=== PATIENT | male | born 1980 | race Caucasian/White ===

== ENCOUNTER 2016-10-29 04:25 | Emergency (ER) | payer BC, OTHER ==
[2016-10-29] MEDS ORDERED: SODIUM CHLORIDE 0.9% 500 ML IV STA (05:17)
[2016-10-29] MEDS ORDERED: METOCLOPRAMIDE 5 MG/ML 2 ML VIAL IVP STA (05:17)
[2016-10-29] MEDS ORDERED: KETOROLAC 30 MG/ML 1 ML VIAL IVP STA (05:17)
--- NOTE | 2016-10-29 05:20 | ED ---
General Adult HPI - General Chief complaint: Back Pain/Injury Stated complaint: low back pain, abd pain, vomiting Time Seen by Provider: 10/29/16 05:13 Source: patient, family, RN notes reviewed Mode of arrival: ambulatory Limitations: no limitations - History of Present Illness Initial comments: Patient is a pleasant 36-year-old male presenting to the emergency department complaining left back and now abdominal discomfort. Onset was around midnight. Discomfort was fairly sudden. Discomfort is now radiating more towards the lower abdomen. No hematuria or dysuria. No constipation. No history of similar symptoms previously. Patient is nauseated and has vomited a few times. No fever. - Related Data Home Medications Medication Instructions Recorded Confirmed Topiramate [Trokendi Xr] 100 mg PO BID 10/29/16 10/29/16 Previous Rx's Medication Instructions Recorded Hydrocodone/Acetaminophen [[place] 2 each PO Q6HR PRN #20 tab 10/29/16 5-325] Metoclopramide HCl [Reglan] 10 mg PO Q6HR PRN #15 tablet 10/29/16 Allergies Allergy/AdvReac Type Severity Reaction Status Date / Time naproxen AdvReac Unknown Verified 10/29/16 04:33 Review of Systems ROS Statement: Those systems with pertinent positive or pertinent negative responses have been documented in the HPI. ROS Other: All systems not noted in ROS Statement are negative. Constitutional: Denies: fever, chills Eyes: Denies: eye pain ENT: Denies: ear pain Respiratory: Denies: cough Cardiovascular: Denies: chest pain Endocrine: Denies: fatigue Gastrointestinal: Reports: abdominal pain, nausea, vomiting. Denies: constipation Genitourinary: Denies: dysuria, hematuria Musculoskeletal: Reports: back pain Skin: Denies: rash Neurological: Denies: weakness Past Medical History Additional Past Medical History / Comment(s): migraines History of Any Multi-Drug Resistant Organisms: None Reported Past Surgical History: Orthopedic Surgery Past Psychological History: No Psychological Hx Reported Smoking Status: Never smoker Past Alcohol Use History: None Reported Past Drug Use History: None Reported General Exam Limitations: no limitations General appearance: alert, in no apparent distress Head exam: Present: atraumatic Eye exam: Present: normal appearance, PERRL ENT exam: Present: normal oropharynx Neck exam: Present: normal inspection Respiratory exam: Present: normal lung sounds bilaterally Cardiovascular Exam: Present: regular rate, normal rhythm Expanded Peripheral pulses: 2+: Dorsalis Pedis (R), Dorsalis Pedis (L) GI/Abdominal exam: Present: soft, tenderness (Mild tenderness left lower abdomen ). Absent: distended Extremities exam: Present: normal inspection Back exam: Present: tenderness (Mild tenderness left lower back). Absent: CVA tenderness (R), CVA tenderness (L) Neurological exam: Present: alert Psychiatric exam: Absent: normal affect, normal mood Skin exam: Absent: rash Course Vital Signs 10/29/16 04:29 Temperature 97 F L Pulse Rate 47 L Respiratory 20 Rate Blood Pressure 126/60 O2 Sat by Pulse 100 Oximetry Medical Decision Making - Medical Decision Making Patient reexamined and resting comfortably in bed. Patient symptom free following medication. Patient has been unable to provide urine sample. Patient and family updated on results and need for follow-up. Patient had paresthesias with naproxen previously and they generally avoid NSAIDs. - Lab Data Result diagrams: 10/29/16 04:43 10/29/16 04:43 Lab Results 10/29/16 10/29/16 Range/Units 04:43 04:43 WBC 12.9 H (3.8-10.6) k/uL RBC 5.11 (4.30-5.90) m/uL Hgb 15.1 (13.0-17.5) gm/dL Hct 43.6 (39.0-53.0) % MCV 85.2 (80.0-100.0) fL MCH 29.5 (25.0-35.0) pg MCHC 34.6 (31.0-37.0) g/dL RDW 13.3 (11.5-15.5) % Plt Count 232 (150-450) k/uL Neutrophils % 89 % Lymphocytes % 7 % Monocytes % 3 % Eosinophils % 0 % Basophils % 0 % Neutrophils # 11.4 H (1.3-7.7) k/uL Lymphocytes # 0.9 L (1.0-4.8) k/uL Monocytes # 0.4 (0-1.0) k/uL Eosinophils # 0.0 (0-0.7) k/uL Basophils # 0.0 (0-0.2) k/uL Sodium 147 H (137-145) mmol/L Potassium 4.1 (3.5-5.1) mmol/L Chloride 109 H (98-107) mmol/L Carbon Dioxide 22 (22-30) mmol/L Anion Gap 16 mmol/L BUN 19 (9-20) mg/dL Creatinine 1.34 H (0.66-1.25) mg/dL Est GFR (MDRD) Af Amer >60 (>60 ml/min/1.73 sqM) Est GFR (MDRD) Non-Af >60 (>60 ml/min/1.73 sqM) Glucose 144 H (74-99) mg/dL Calcium 9.7 (8.4-10.2) mg/dL Total Bilirubin 0.5 (0.2-1.3) mg/dL AST 20 (17-59) U/L ALT 39 (21-72) U/L Alkaline Phosphatase 66 (38-126) U/L Total Protein 8.2 (6.3-8.2) g/dL Albumin 4.8 (3.5-5.0) g/dL Amylase 57 (30-110) U/L Lipase 99 (23-300) U/L - Radiology Data Radiology results: report reviewed (Computed tomography scan of the abdomen and pelvis shows 7-8 mm left UPJ stone.) Disposition Clinical Impression: Ureterolithiasis Disposition: HOME SELF-CARE Condition: Stable Instructions: Kidney Stones (ED) Additional Instructions: Please follow-up with primary care physician and urologist this week. Return for fever, uncontrolled pain, vomiting, worsening symptoms or other concerns. Prescriptions: Hydrocodone/Acetaminophen [[place] 5-325] 2 each PO Q6HR PRN #20 tab PRN Reason: Pain Metoclopramide HCl [Reglan] 10 mg PO Q6HR PRN #15 tablet PRN Reason: Nausea Referrals: Isabela Blank III, MD [Primary Care Provider] - 1-2 days Asim Park MD [STAFF PHYSICIAN] - 1-2 days
[2016-10-29 05:57] LABS: Basophils % (A) 0 %; CH 29.6; CHCM 34.9; Eosinophils % (A) 0 %; HCT 43.6 % (39.0-53.0); HDW 3.15; HGB 15.1 gm/dL (13.0-17.5); Luc # (Auto) 0.09; Luc % (Auto) 1; Lymphocytes # (A) 0.9 k/uL (1.0-4.8); Lymphocytes % (A) 7 %; MCH 29.5 pg (25.0-35.0); MCHC 34.6 g/dL (31.0-37.0); MCV 85.2 fL (80.0-100.0); Mean Platelet Volume 8.1; Monocytes # (A) 0.4 k/uL (0-1.0); Monocytes % (A) 3 %; Neutrophils # (A) 11.4 k/uL (1.3-7.7); Neutrophils % (A) 89 %; RBC 5.11 m/uL (4.30-5.90); RDW 13.3 % (11.5-15.5); WBC 12.9 k/uL (3.8-10.6); WBC (Perox) 13.67
[2016-10-29 06:07] LABS: ALT 39 U/L (21-72); AST 20 U/L (17-59); Alkaline Phosphatase 66 U/L (38-126); Amylase 57 U/L (30-110); Anion Gap 16 mmol/L; Blood Urea Nitrogen 19 mg/dL (9-20); Calcium 9.7 mg/dL (8.4-10.2); Carbon Dioxide 22 mmol/L (22-30); Chloride 109 mmol/L (98-107); Glucose 144 mg/dL (74-99); Non-African American GFR(MDRD) >60 (>60 ml/min/1.73 sqM); Potassium 4.1 mmol/L (3.5-5.1); Sodium 147 mmol/L (137-145); Total Bilirubin 0.5 mg/dL (0.2-1.3); Total Protein 8.2 g/dL (6.3-8.2)
--- NOTE | 2016-10-29 06:36 | CT ---
EXAM: CT Abdomen and Pelvis Without Intravenous Contrast. CLINICAL HISTORY: Reason: Left flank pain TECHNIQUE: Axial computed tomography images of the abdomen and pelvis without intravenous contrast. CTDI is 6.3 mGy and DLP is 281.9 mGy-cm This CT exam was performed using one or more of the following dose reduction techniques: automated exposure control, adjustment of the mA and/or kV according to patient size, and/or use of iterative reconstruction technique. COMPARISON: No relevant prior studies available. FINDINGS: Lower thorax: No acute findings. ABDOMEN: Liver: Liver is unremarkable. Gallbladder and bile ducts: Gallbladder: No radiopaque gallstones or pericholecystic inflammatory changes. No ductal dilation. Pancreas: Unremarkable. No ductal dilation. Spleen: Unremarkable Adrenals: No adrenal masses Kidneys and ureters: Kidneys are of normal size bilaterally. No right renal calculi or evidence of right hydronephrosis. There are several small nonobstructing left renal calculi in the upper pole and mid zone to lower pole of left kidney measuring approximately 2-5 millimeters. There is mild hydronephrosis with approximately 7-8 millimeters obstructing calculus in region of the left ureteropelvic junction. Stomach and bowel: No evidence of bowel obstruction. Appendix is within normal limits without evidence of appendicitis. Appendix: See above. PELVIS: Bladder: Urinary bladder is unremarkable and no bladder calculi identified. Reproductive: Unremarkable as visualized. ABDOMEN and PELVIS: Intraperitoneal space: Unremarkable. No free air. No significant fluid collection. Bones/joints: No significant bony abnormalities. No acute fracture. No dislocation. Soft tissues: Unremarkable. Vasculature: Unremarkable. No abdominal aortic aneurysm. Lymph nodes: No abnormal masses or adenopathy. No abnormal fluid collections identified. IMPRESSION: Multiple small nonobstructing left renal calculi. Obstructing approximately 7-8mm left ureteropelvic junction calculus with evidence of mild left hydronephrosis.
[2016-10-29 07:29] LABS: Appearance,Urine Turbid (Clear); Bilirubin,Urine Negative (Negative); Glucose,Urine (UA) Negative (Negative); Ketones,Urine Negative (Negative); Leukocyte Esterase,Urine Negative (Negative); Mucus,Urine Rare /hpf; Nitrite,Urine Negative (Negative); Particle Count 29546; Protein,Urine Trace (Negative); RBC,Urine 69 /hpf (0-5); Specific Gravity,Urine 1.019 (1.001-1.035); UA Billing (MACRO vs. MICRO) MICRO; Urobilinogen,Urine <2.0 mg/dL (<2.0)
[2016-10-29 07:50] VITALS: BP 95/54; PULSE 56; RESP 14; TEMP 97.5
== END 2016-10-29 07:53 | disposition home or self-care (01) ==
LOC: EC 04:25
DX: N13.2 Hydronephrosis with renal and ureteral calculous obstruction (principal); G43.909 Migraine, unspecified, not intractable, without status migrainosus; Z79.899 Other long term (current) drug therapy; Z88.6 Allergy status to analgesic agent
CPT/HCPCS: 99284 ×2; 96374 ×2; 96375 ×2; 96361 ×2; 36415; 80053; 82150; 83690; 85025; 81001; 74176; J2765; J1885

== ENCOUNTER 2016-11-12 08:36 | Day surgery (SDC) | payer BC ==
[2016-11-08 14:50] VITALS: BMI 24.1
[~2016-11-12 08:36] MED LIST: LACTATED RINGERS 1,000 ML IV SCH; LIDOCAINE 1% 20 ML VIAL (10MG/ML) FOR IV START INTRADERMA PRN; Pre Op ABX Message 1 EACH MISC MISCELLANE ONE
--- NOTE | 2016-11-12 08:56 | XR ---
EXAMINATION TYPE: XR KUB DATE OF EXAM: 11/12/2016 8:51 AM CLINICAL DATA: 36-year-old male left-sided kidney stone, preop lithotripsy, [facility] COMPARISON: Correlation CT 10/29/2016 FINDINGS: Redemonstrated 7 mm calculus likely in the upper left ureter. Known additional left-sided renal calcu li are not as well-seen radiographically. There is mild to moderate stool. Nonobstructive bowel gas pattern. Phleboliths within the left hemipelvis. IMPRESSION: A 7 mm left urinary tract calculus probably in the upper ureter, similar to minimally progressed from 10/29/2016.
[2016-11-12 09:17] VITALS: RESP 16; TEMP 97.9
[2016-11-12] MEDS ORDERED: LIDOCAINE 1% 20 ML VIAL (10MG/ML) FOR IV START INTRADERMA ONE (09:29)
[2016-11-12] MEDS ORDERED: MIDAZOLAM 2 MG/2 ML VIAL ONE (10:26)
[2016-11-12] MEDS ORDERED: PROPOFOL 10 MG/ML 20 ML VIAL IV ONE (10:26)
[2016-11-12] MEDS ORDERED: fentaNYL (PF) 50 MCG/ML 2 ML AMP ONE (10:26)
[2016-11-12] MEDS ORDERED: FUROSEMIDE 10 MG/ML 2 ML VIAL ONE (10:26)
--- NOTE | 2016-11-12 10:51 | P.OP ---
Date of Procedure: 11/12/16 Preoperative Diagnosis: Left Ureteral Calculus Postoperative Diagnosis: Same Procedure(s) Performed: Left Extracorporeal Shockwave Lithotripsy (ESWL) Anesthesia: MAC Surgeon: Faizan Hull Estimated Blood Loss (ml): 0 Pathology: none sent Condition: stable Disposition: PACU Indications for Procedure: This patient presents with a week history of an 8 mm left proximal ureteral stone. He was in the er with colic. It is now controlled with occasional norco. The pain hasnt moved just lessened. He has three small left renal stones. The patient wants treatment and comes for eswl left Operative Findings: Excellent fragmentation Description of Procedure: The patient was taken to the operating room and placed on the Dornier Compact Delta II lithotripter in the supine position. The calculus was seen on biplanar fluoroscopy. Lasix 10 mg was given intravenously. Once the patient was properly positioned and sedated, lithotripsy was performed. The energy level was gradually increased per protocol, to an energy level of 5. After 200 shocks were administered, a 2 minute pause was instituted per protocol. A total of 1500 shocks were given at a rate of 80 shocks per minute. Fluoroscopy was utilized at a minimum to ensure proper positioning and determine the treatment status. The calculus changed in appearance, consistent with fragmentation, and in fact could no longer be seen after 1000 shocks had been administered. The patient tolerated the procedure well was taken to the recovery room in stable condition. Instructions were given to strain the urine , and the patient will follow-up within one week.
[2016-11-12 11:41] VITALS: BP 120/82; PULSE 45
== END 2016-11-12 12:10 | disposition home or self-care (01) ==
LOC: ORWHC2ENDO 08:36
PROVIDERS: ATTEND Urology
DX: N20.2 Calculus of kidney with calculus of ureter (principal); Z87.442 Personal history of urinary calculi; G43.909 Migraine, unspecified, not intractable, without status migrainosus; F17.220 Nicotine dependence, chewing tobacco, uncomplicated; Z79.899 Other long term (current) drug therapy
CPT/HCPCS: 74000; 50590; J2250; J1940; J3010; J2704

== ENCOUNTER → 2016-11-16 | Outpatient (CLI) | payer BC ==
--- NOTE | 2016-11-16 13:37 | XR ---
EXAMINATION TYPE: XR KUB DATE OF EXAM: 11/16/2016 1:28 PM CLINICAL DATA: 36-year-old male left-sided renal calculus, lithotripsy on 11/12. COMPARISON: 11/12/2016 FINDINGS: Nonobstructive bowel gas pattern. Mild overall stool. Previously seen 7 mm left paramedian mid abdominal calcification is no longer identified. Stable phle boliths in the left hemipelvis. IMPRESSION: The previous 7 mm left-sided calculus is no longer seen. Stable phlebolith in the left hemipelvis.
== END | disposition home or self-care (01) ==
LOC: RADXRMAIN 13:14
PROVIDERS: ATTEND Urology
DX: N20.0 Calculus of kidney (principal)
CPT/HCPCS: 74000